=== PATIENT | female | born 1985 | race Caucasian/White ===

== ENCOUNTER → 2016-08-07 | Outpatient (CLI) | payer BC ==
[~2016-08-07] MED LIST: PRENTAB26 PO
== END | disposition home or self-care (01) ==
LOC: C.PAPS 10:39
PROVIDERS: ATTEND Obstetrics & Gynecology
DX: Z01.419 Encounter for gynecological examination (general) (routine) without abnormal findings (principal)

== ENCOUNTER → 2017-09-07 | Outpatient (CLI) | payer BC | END | disposition home or self-care (01) | LOC: C.PAPS 13:08 | PROVIDERS: ATTEND Physician Assistant | DX: Z01.419 Encounter for gynecological examination (general) (routine) without abnormal findings (principal) ==

== ENCOUNTER 2019-10-17 13:35 | Inpatient (IN) ==
[2019-10-17] MEDS ORDERED: OXYTOCIN 30 UNITS/500 ML BAG IV PRN ×3 (14:12→20:55)
[2019-10-17 14:39] LABS: Hematocrit (blood only) 37.7 % (37-47); Mean Corpuscular Hemoglobin 30.4 pg (25-34); Mean Corpuscular Volume 88.1 fL (80-100); Platelet Count 218 K/uL (130-400); RDW Coefficient of Variation 13.4 % (11.5-14.5); RDW Standard Deviation 42.9 fL (36.4-46.3); Red Blood Count 4.28 M/uL (4.2-5.4); White Blood Count 13.91 K/uL (4.8-10.8)
--- NOTE | 2019-10-17 14:48 | History & Physical Report ---
Date of Service October 17, 2019 Assessment & Plan (1) Supervision of elderly multigravida, antepartum: - heart rate tracing category 2 with accelerations and variability -Patient afebrile with no abdominal tenderness no sign of chorioamnionitis -prolonged rupture of membrane diagnosis explained to the patient -Because of the prolonged rupture, induction is indicated. -The patient afebrile with no abdominal tenderness, no indication for antibiotics at this time -We will start Pitocin per induction protocol (2) Prolonged rupture of membranes: (3) Diet controlled gestational diabetes mellitus (GDM), antepartum: (4) Velamentous insertion of umbilical cord: History of Present Illness Primary Care Provider: Eddie Jones MD The patient is a 34-year old 2 para 1, with an EDC of 30 October, at 38 weeks gestational age, who presents with spontaneous rupture of membranes. The patient was seen in the office today for a routine OB check. At that visit she relayed a history of leaking fluid starting at 0430 hrs. on 15 October. Patient did not think that she had ruptured her membranes. Sterile speculum in the office confirmed the diagnosis and the patient was sent to labor and delivery for evaluation. This has been remarkable for gestational diabetes diet-controlled. She was diagnosed to 28 weeks gestational age and followed per protocol. Abdominal circumferences were all less than the 75th percentile. The patient was also diagnosed with a velamentous insertion of the umbilical cord. She has been followed per protocol with growth ultrasounds which have been reassuring and she has been having testing which is also been reassuring. Laboratory values for the show blood type of O+, antibody negative, rubella immune, hepatitis B negative, she declined all genetic screening, and she had a negative third trimester beta strep culture. Allergies Allergy/AdvReac Type Severity Reaction Status Date / Time No Known Drug Allergies Allergy Verified 10/17/19 08:46 Home Medications Home Medications Medication Instructions Recorded Confirmed Type prenat.vits,diogenes,meo-ddqw-hxtmm 1 tab PO DAILY 03/26/19 10/17/19 History docusate sodium PO 04/01/19 10/17/19 History polyethylene glycol 3350 PO 08/08/19 10/17/19 History acetone (urine) test #50 ea 08/26/19 10/17/19 Rx blood sugar diagnostic #120 ea 08/26/19 10/17/19 Rx blood-glucose meter #1 ea 08/26/19 10/17/19 Rx lancets 33 gauge #120 ea 08/26/19 10/17/19 Rx Patient History Family History (Updated 03/26/19 @ 14:50 by Crissy Ames) Grandfather (Paternal) Diabetes Heart disease Colorectal cancer Grandmother (Maternal) Heart disease Mother Hypertension Brother Hypertension Sister Endometriosis Heart murmur Social History (Updated 03/26/19 @ 14:53 by Crissy Ames) marital status: Current Living Situation: Spouse Current Living Situation Comment: lives with spouse and son, 1 cat.. spouse to change litter. 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 Smoking Status: Former smoker Tobacco Type: cigarettes ; Age Quit Using Tobacco: 33 ; packs per day: 0.25 ; Hx Alcohol Use: No Hx Substance Use: No Physical Exam Constitutional: WD/WN, vitals as above Respiratory: Auscultation: lungs clear to auscultation bilaterally Cardiovascular: RRR, no murmur, no edema Extremities: no calf tenderness Gastrointestinal (Abdomen): Gravid, vertex, positive heart tones, estimated weight of 7-1/2 pounds Genitourinary: Cervix: 3 cm / 80%/-2 station, palpable fore bag Results & Data Vital Signs (Past 12 Hours) Vital Signs Pulse BP 10/17/19 13:53 85 124/70 Coding Level of Care Code None Diagnoses Supervision of elderly multigravida, antepartum O09.529 Prolonged rupture of membranes O42.90 Diet controlled gestational diabetes mellitus (GDM), antepartum O24.410 Velamentous insertion of umbilical cord O43.129
[2019-10-17 15:11] LABS: Mean Corpuscular Hgb Conc 34.5 g/dL (32-36)
[2019-10-17] MEDS: LACTATED RINGER'S 1,000 ML IV PRN ×2 (15:27→19:18)
--- NOTE | 2019-10-17 16:39 | Labor Progress Brief Note ---
Date of Service October 17, 2019 Subjective Reason For Note: Routine Evaluation Assessment & Plan (1) Prolonged rupture of membranes: - tracing Cat II - forebag ruptured - continue pitocin Physical Exam Genitourinary: /-2, forebag AROM clear Results & Data Vital Signs (Past 12 Hours) Vital Signs Temp Pulse Resp BP 10/17/19 16:05 71 117/68 10/17/19 16:00 98.2 F 18 10/17/19 13:57 98.8 F 20 10/17/19 13:53 85 124/70 Coding Level of Care Code None Diagnoses Prolonged rupture of membranes O42.90
--- NOTE | 2019-10-17 20:31 | Delivery Summary ---
Vaginal Delivery Summary Date of Service October 17, 2019 Vaginal Delivery Summary Findings: Viable female with Apgars of 8 and 9. Baby delivered over a midline second-degree laceration. Nuchal cord x1 reduced on the perineum with breakage of the cord. Placenta delivered spontaneously. Laceration repaired with 4-0 Vicryl. Estimated blood loss 300 cc. Labor course: The patient is a 34-year old 2 para 1, with an EDC of 30 October, at 38 weeks gestational age, who presents with spontaneous rupture of membranes. The patient was seen in the office today for a routine OB check. At that visit she relayed a history of leaking fluid starting at 0430 hrs. on 15 October. Patient did not think that she had ruptured her membranes. Sterile speculum in the office confirmed the diagnosis and the patient was sent to labor and delivery for evaluation. This has been remarkable for gestational diabetes diet-controlled. She was diagnosed to 28 weeks gestational age and followed per protocol. Abdominal circumferences were all less than the 75th percentile. The patient was also diagnosed with a velamentous insertion of the umbilical cord. She has been followed per protocol with growth ultrasounds which have been reassuring and she has been having testing which is also been reassuring. Laboratory values for the show blood type of O+, antibody negative, rubella immune, hepatitis B negative, she declined all genetic screening, and she had a negative third trimester beta strep culture. Upon admission the patient was 3 cm dilated and 80% effaced. Tracing was category 2. There was no sign of chorioamnionitis and antibiotics were not initiated. Because of the prolonged rupture of membranes though Pitocin induction was initiated. Contractions began to increase in intensity. Repeat examination showed a fore bag which was ruptured for clear fluid. Over the next several hours the patient progressed to full dilatation. She pushed for approximately 10 minutes over a midline second-degree laceration. Nuchal cord x1 broke with reduction. Baby was delivered in the umbilical cord was then clamped and cut. The placenta was massaged and delivered spontaneously. Midline episiotomy was infiltrated with 1% lidocaine and closed with 4-0 Vicryl. Estimated blood loss 300 cc. Sponge and needle count was correct.
[2019-10-17] MEDS ORDERED: IBUPROFEN 600 MG TAB PO ONE (20:42)
[2019-10-17] MEDS ORDERED: ACETAMINOPHEN W/CODEINE #3 1 TAB PO PRN (20:55)
[2019-10-17] MEDS ORDERED: HYDROCORTISONE ACETATE 25 MG SUPP PR PRN (20:55)
[2019-10-17] MEDS ORDERED: SUPERCREAM 0.870% 15 GM JAR EXT PRN (20:55)
[2019-10-17] MEDS ORDERED: BENZOCAINE 20% AER SPR 82.5 GM CAN EXT PRN (20:55)
[2019-10-17] MEDS ORDERED: DIPHTHERIA/TETANUS/PERTUSSIS 0.5 ML SYR/VIAL IM ONE (20:55)
[2019-10-18] MEDS: IBUPROFEN 600 MG TAB PO PRN ×5 (05:04→20:17)
--- NOTE | 2019-10-18 08:12 | Obstetrical Progress Note ---
Date of Service October 18, 2019 Assessment & Plan (1) Diet controlled gestational diabetes mellitus (GDM), antepartum: - doing well - routine care Subjective Ambulation: ambulating normally Feeding Type:: breast feeding Physical Exam Constitutional WD/WN, vitals as above Gastrointestinal (Abdomen) Fundus firm below umbilicus Musculoskeletal No deep calf tenderness Results & Data Vital Signs (Past 12 Hours) Vital Signs Temp Pulse Pulse Resp BP BP Pulse Ox 10/18/19 04:00 98.1 F 70 18 120/77 10/18/19 00:00 97.7 F 76 18 121/72 10/17/19 22:10 98.1 F 81 16 121/57 L 97 10/17/19 22:01 98.1 F 81 121/57 L 10/17/19 21:47 80 113/61 10/17/19 21:32 81 140/102 H 10/17/19 21:16 76 18 121/55 L 10/17/19 21:01 76 18 127/60 10/17/19 20:46 86 18 115/63 10/17/19 20:31 81 18 121/68 10/17/19 20:16 82 18 134/70
[2019-10-18] MEDS: PRENATAL VITAMIN 1 TAB PO SCH (09:17)
[2019-10-18] MEDS: DOCUSATE SODIUM 100 MG CAP PO SCH ×3 (09:17→20:16)
[2019-10-18] MEDS: FERROUS SULFATE 325 MG TAB PO SCH (09:17)
[2019-10-18] MEDS: ACETAMINOPHEN 325 MG TAB PO PRN ×2 (11:50→22:05)
[2019-10-18] MEDS ORDERED: bisacodyL 5 MG TABEC PO SCH (20:00)
[2019-10-19] MEDS: IBUPROFEN 600 MG TAB PO PRN (05:22)
[2019-10-19 06:27] LABS: Hematocrit (blood only) 35.6 % (37-47); Hemoglobin 12.2 g/dL (12.0-16.0)
[2019-10-19] MEDS: FERROUS SULFATE 325 MG TAB PO SCH (08:22)
[2019-10-19] MEDS: PRENATAL VITAMIN 1 TAB PO SCH (08:22)
[2019-10-19] MEDS: DOCUSATE SODIUM 100 MG CAP PO SCH (08:22)
--- NOTE | 2019-10-19 08:47 | Obstetrical Progress Note ---
Date of Service October 19, 2019 Assessment & Plan (1) Diet controlled gestational diabetes mellitus (GDM), antepartum: home, no depression breast pump Subjective Ambulation: ambulating normally Voiding: no voiding problems Diet Tolerance:: regular diet Lochia:: Moderate Current Pain Level(1-10): 0 Physical Exam Constitutional WD/WN, vitals as above Genitourinary normal external appearance Results & Data Vital Signs (Past 12 Hours) Vital Signs Temp Pulse Resp BP Pulse Ox 10/19/19 00:20 97.5 F L 82 16 112/69 99
== END 2019-10-19 12:15 | disposition home or self-care (01) | DRG 807 ==
LOC: OPB 13:35 → 4S1 13:37 → 4S2 22:41